=== PATIENT | female | born 1955 | race Caucasian/White ===

== ENCOUNTER 2018-06-14 10:01 | Outpatient (CLI) | payer BC ==
--- NOTE | 2018-06-14 11:59 | RAD ---
LUMBAR SPINE SERIES FOUR VIEWS INCLUDING FLEXION AND EXTENSION: FINDINGS: Vertebral bodies are normal in height. Disc narrowing is seen at L4-5. There are degenerative facet c hanges. Limited motion is seen in flexion and extension. No abnormal motion visualized. IMPRESSION: Mild arthritic changes of the spine. POS: TAMELA
== END 2018-06-14 10:02 | disposition home or self-care (01) ==
LOC: RAD 10:01
PROVIDERS: ATTEND Nurse Practitioner Family
DX: M51.17 Intervertebral disc disorders with radiculopathy, lumbosacral region (principal); M47.896 Other spondylosis, lumbar region
CPT/HCPCS: 72120

== ENCOUNTER 2018-06-25 10:24 | Outpatient (CLI) | payer BC ==
--- NOTE | 2018-06-25 12:15 | RAD ---
RIGHT HIP 2 VIEWS LEFT HIP 2 VIEWS: Date: 06/25/18 HISTORY: Bilateral hip pain. FINDINGS: Mild bilateral joint space narrowing, osteophytosis, and subchondral sclerosis. Femoral head contours are maintained. No acute fracture, dislocation, or aggressive osseous erosions. Mild degenerative ch anges of each sacroiliac joint. IMPRESSION: Mild degenerative changes of the hips. No acute osseous abnormalities are demonstrated. POS: TAMELA
--- NOTE | 2018-06-25 12:16 | RAD ---
AP PELVIS 1 VIEW: Date: 06/25/18 HISTORY: Pelvic pain. FINDINGS: Mild degenerative changes of the hips. Mild osteophytosis about each sacroiliac joint. Sacral ala and pelvic rings intact. IMPRESSION: Mild osteoarthritic changes. No acute osseous abnormalities are demonstrated. POS: TAMELA
== END 2018-06-25 10:25 | disposition home or self-care (01) ==
LOC: RAD 10:24
PROVIDERS: ATTEND Nurse Practitioner Family
DX: M46.1 Sacroiliitis, not elsewhere classified (principal); M16.0 Bilateral primary osteoarthritis of hip
CPT/HCPCS: 72170; 73521

== ENCOUNTER 2022-08-25 09:33 | Outpatient (CLI) | payer MEDICARE | END 2022-08-25 09:34 | disposition home or self-care (01) | LOC: BICULT 09:33 | PROVIDERS: ATTEND Internal Medicine Gastroenterology | DX: Z12.11 Encounter for screening for malignant neoplasm of colon (principal); K21.9 Gastro-esophageal reflux disease without esophagitis; R14.0 Abdominal distension (gaseous); R89.0 Abnormal level of enzymes in specimens from other organs, systems and tissues; R16.0 Hepatomegaly, not elsewhere classified; K76.0 Fatty (change of) liver, not elsewhere classified; R93.2 Abnormal findings on diagnostic imaging of liver and biliary tract; Z90.49 Acquired absence of other specified parts of digestive tract; Z83.71 Family history of colonic polyps | CPT/HCPCS: 76705 ==